=== PATIENT | male | born 1995 | race African-American/Black ===

== ENCOUNTER 2017-10-22 19:21 | Emergency (ER) | payer MEDICAID, OTHER ==
[~2017-10-22] VITALS: Ht 175.3 cm; Wt 77.1 kg
[2017-10-22 21:27] LABS: Basophils # (auto) 0 uL; Basophils % (auto) 0.2 % (0.0-2.0); Eosinophils # (auto) 0.1 uL; Eosinophils % (auto) 1.4 % (0.0-7.0); Hemoglobin 14.7 g/dL (13.5-17.5); Lymphocytes # (auto) 2.1 uL; Lymphocytes % (auto) 30.9 % (10.0-50.0); Mean Corpuscular Hemoglobin 31.4 pg (28.0-32.0); Mean Corpuscular Hgb Conc. 33.3 g/dL (32.0-36.0); Mean Corpuscular Volume 94.3 fL (80.0-100.0); Monocytes # (auto) 0.9 uL; Monocytes % (auto) 13.2 % (0.0-12.0); Neutrophils # (auto) 3.8 uL; Neutrophils % (auto) 54.3 % (37.0-80.0); Nucleated Red Blood Cells % 0.2 %; Platelet Count (auto) 194 10^3/uL (140-450); Red Blood Cells 4.67 10^6/uL (4.5-5.90); Red Cell Distribution Width 15.2 % (11.8-14.3); White Blood Cell 6.9 10^3/uL (4.4-10.8)
[2017-10-22 21:40] LABS: Albumin 3.8 g/dL (3.4-5.0); BUN/Creatinine Ratio 10.3
[2017-10-22 21:43] LABS: Bilirubin, Total 0.2 mg/dL (0.2-1.0); Total Protein 7.7 g/dL (6.4-8.2)
[2017-10-23 01:52] VITALS: BP 132/81
[2017-10-23 02:36] LABS: Urine Bacteria FEW /hpf (None Seen); Urine Blood Negative /uL (Negative); Urine Budding Yeast OCCASIONAL /hpf (None Seen); Urine Mucus FEW (None Seen); Urine Specific Gravity 1.029 (1.001-1.035); Urine WBC 41 /hpf (0 - 3)
[2017-10-23] MEDS ORDERED: LIDOCAINE 1% HCL (LOCAL ANESTH.) INJ 20ML MDV ONE (03:02)
[2017-10-23] MEDS ORDERED: cefTRIAXone SOD 1,000 MG VL ONE (03:03)
[2017-10-23] MEDS ORDERED: cefTRIAXone SOD 1,000 MG VL IM ONE (03:15)
[2017-10-23] MEDS ORDERED: metroNIDAZOLE 500 MG TAB ONE (04:06)
[2017-10-23] MEDS ORDERED: metroNIDAZOLE 500 MG TAB PO ONE (04:15)
== END 2017-10-23 05:02 | disposition home or self-care (01) ==
LOC: ER 19:21
DX: R59.1 Generalized enlarged lymph nodes (principal); N39.0 Urinary tract infection, site not specified; N50.812 Left testicular pain; F17.210 Nicotine dependence, cigarettes, uncomplicated
CPT/HCPCS: 36415; 74176; 76870; 80053; 81001; 85025; 87491; 87591; 96372; 99285; J0696; J2001